=== PATIENT | female | born 1980 | race Caucasian/White ===

== ENCOUNTER 2019-06-24 20:09 | Emergency (ER) | payer BC ==
[~2019-06-24] VITALS: Ht 157.5 cm; Wt 79.4 kg
[~2019-06-24 20:09] MED LIST: ADDERALL 10 MG10 MG PO; ADIPEX-P37.5 M1; BACTRIM DS TAB1 EACH PO; CLEOCIN HCL150 MG; CLEOCIN HCL300 MG PO; DULCOLAX; LORTABELXR PO; MAGNESIUM CITR296 ML PO; NOHOMEMEDICATIONS; NUVARING VAGIN1 EACH VG; PERCOCET 5-3251 EACH PO; PHENERGAN 25 MG25 M1 PO; RIFADIN150 MG PO; TRAMADOL 50 MG50 MG PO; ZOFRAN ODT4 MG PO; ZOFRAN4 MG PO
[2019-06-24] MEDS ORDERED: VYVANSE70 MG PO (20:26)
[2019-06-24] MEDS ORDERED: LINZESS290 MCG PO (20:27)
[2019-06-24] MEDS ORDERED: SINGULAIR 10 MG10 M1 PO (20:28)
[2019-06-24 21:06] LABS: ABSOLUTE BASOPHILS 0.1 thou/uL (0.0-0.2); ABSOLUTE EOSINOPHILS 0.3 thou/uL (0.0-0.7); ABSOLUTE LYMPHOCYTES 2.4 thou/uL (0.8-5.3); ABSOLUTE MONOCYTES 0.9 thou/uL (0.0-1.2); ABSOLUTE NEUTROPHILS 6.5 thou/uL (1.6-8.1); BASOPHILS 1.3 %; HEMATOCRIT 42.7 % (37.0-47.0); HEMOGLOBIN 14.7 gm/dL (12.0-15.0); LYMPHOCYTES 23.6 %; MCH 31.7 pg (26.0-34.0); MCHC 34.5 g/dL (28.0-37.0); MCV 91.7 fL (80.0-100.0); MONOCYTES 8.5 %; MPV 8.8 fl. (7.2-11.1); NUCLEATED RBCS 0 /100WBC; PLATELET COUNT* 245 thou/uL (150-400); POLYS 63.6 %; RBC 4.65 mil/uL (4.20-5.00); RDW-CV 13.2 % (10.5-14.5); WBC 10.2 thou/uL (4.0-11.0)
[2019-06-24 21:11] LABS: CALCIUM 8.6 mg/dL (8.5-10.1); CREATININE 0.7 mg/dL (0.6-1.3); POTASSIUM 3.6 mmol/L (3.5-5.1)
[2019-06-24] MEDS ORDERED: PREDNISONE 10 M10 M1 PO (21:33)
[2019-06-24] MEDS ORDERED: BACTRIM DS TAB1 EACH PO (21:33)
[2019-06-24] MEDS ORDERED: SILVADENE20 GM TOP (21:33)
[2019-06-24] MEDS ORDERED: DIFLUCAN150 M1 PO (21:46)
[2019-06-24 22:02] VITALS: BP 158/84
[2019-06-24 22:09] LABS: ESR (SEDRATE) 12 mm/hr (0-20)
== END 2019-06-24 21:45 | disposition home or self-care (01) ==
LOC: M.ERS 20:09
PROVIDERS: Nurse Practitioner
DX: L55.0 Sunburn of first degree (principal); R60.0 Localized edema; F90.9 Attention-deficit hyperactivity disorder, unspecified type; Z88.0 Allergy status to penicillin; Z88.7 Allergy status to serum and vaccine; Z90.49 Acquired absence of other specified parts of digestive tract